=== PATIENT | male | born 1960 | race Caucasian/White ===

== ENCOUNTER → 2018-03-31 | Outpatient (CLI) | payer MEDICAID ==
[~2018-03-31] VITALS: Ht 180.3 cm; Wt 106.6 kg
[~2018-03-31] MED LIST: ADENOSINE 90 MG in GIVE UN-DILUTED 0 ML IV STA
[2018-03-31 10:27] VITALS: BP 127/83
== END | disposition home or self-care (01) ==
LOC: XY 08:05
PROVIDERS: ATTEND Internal Medicine Cardiovascular Disease
DX: R07.89 Other chest pain (principal)
CPT/HCPCS: 78452; 93017; A9500; J0153

== ENCOUNTER → 2018-04-16 | Outpatient (CLI) | payer MEDICAID | END | disposition home or self-care (01) | LOC: XYW 08:29 | PROVIDERS: ATTEND Internal Medicine Cardiovascular Disease | DX: I77.89 Other specified disorders of arteries and arterioles (principal); R07.89 Other chest pain | CPT/HCPCS: 93306 ==